=== PATIENT | male | born 1965 | race African-American/Black ===

== ENCOUNTER 2019-11-28 10:48 | Inpatient (IN) | payer OTHER ==
--- NOTE | 2019-11-28 11:23 | BHS.RME ---
Substance Use & Tx History - Substance Use History Heroin Substance amount: 3 bags Frequency of use: Daily Substance route: Inhalation (ex: sniffing or snorting) Date of Last Use: 11/21/19 (started age 33) Alcohol Substance amount: 2 beers Frequency of use: Daily Substance route: Oral Date of Last Use: 11/21/19 (started age 16) Physical/Psych/Mental Status - Behavior General Behavior: Increased activity (restlessness, agitation) Eye Contact: Normal - Cooperativeness Cooperativeness: Cooperative - Thinking Thought Processes: Tight, Logical, Goal Directed - Physical Health Problems Is patient presently having any pain?: No Does patient presently have any injuries (include location): No Does patient currently have a fever: No Is patient : No CIWA Nausea/Vomitin-No Nausea/No Vomiting Muscle Tremors: None Anxiety: 0-No Anxiety, at Ease Agitation: 0-Normal Activity Paroxysmal Sweats: No Perspiration Orientation: 0-Oriented Tacttile Disturbances: 0-None Auditory Disturbances: 0-None Visual Disturbances: 0-None Headache: 0-None Present CIWA-Ar Total Score: 0
[2019-11-28 14:29] VITALS: BMI 22.6
--- NOTE | 2019-11-28 14:36 | HP ---
CIWA Score Nausea/Vomitin-No Nausea/No Vomiting Muscle Tremors: None Anxiety: 0-No Anxiety, at Ease Agitation: 0-Normal Activity Paroxysmal Sweats: No Perspiration Orientation: 0-Oriented Tacttile Disturbances: 0-None Auditory Disturbances: 0-None Visual Disturbances: 0-None Headache: 0-None Present CIWA-Ar Total Score: 0 - Admission Criteria OASAS Guidelines: Admission for Medically Managed Detox: Requires at least one of the followin. CIWA greater than 12 2. Seizures within the past 24 hours 3. Delirium tremens within the past 24 hours 4. Hallucinations within the past 24 hours 5. Acute intervention needed for co occurring medical disorder 6. Acute intervention needed for co occurring psychiatric disorder 7. Severe withdrawal that cannot be handled at a lower level of care (continued vomiting, continued diarrhea, abnormal vital signs) requiring intravenous medication and/or fluids 8. Admitting History and Physical - Admission Chief Complaint: Mr. Florence is a 54 yo man who presents to [facility] requesting rehab admission with a history of alcohol and heroin use. History of Present Illness: Mr. Florence is a 54 yo man who presents to [facility] requesting rehab admission with a history of alcohol and heroin use. He completed detox yesterday at [facility]. There were no beds available here and therefore he was held at [facility] over night and transported here today. Rapid COVID done today negative PMH: BPH, back pain, iron def. anemia, hx of COVID now with IgG antibodies PSH/Psych/Legal: none SOC: lives in the [place] with a roommate Substance Use History Heroin Substance amount: 3 bags Frequency of use: Daily Substance route: Inhalation (ex: sniffing or snorting) Date of Last Use: 11/21/19 (started age 33) OD x August 2019 Has Narcan at home Alcohol Substance amount: 2 beers Frequency of use: Daily Substance route: Oral Date of Last Use: 11/21/19 (started age 16) No seizure, blackout x2: years ago No eyeopener History Source: Patient Limitations to Obtaining History: No Limitations Admission [facility] Allergies/Adverse Reactions: Allergies Allergy/AdvReac Type Severity Reaction Status Date / Time No Known Allergies Allergy Verified 11/28/19 14:53 - Ebola screening Have you traveled outside of the country in the last 21 days: No Have you been sick,other than usual withdrawal symptoms: No Do you have a fever: No - Review of Systems Constitutional: Unintentional Wgt. Loss (10 lb weight loss over the past 3 mos) EENT: reports: Blurred Vision (glasses for reading, with him today) Respiratory: reports: No Symptoms reported Cardiac: reports: No Symptoms Reported GI: reports: No Symptoms Reported : reports: Other (hesitancy) Musculoskeletal: reports: Back Pain (fell off a chair weeks ago while hanging curtains) Integumentary: reports: No Symptoms Reported Neuro: reports: No Symptoms reported Endocrine: reports: No Symptoms Reported Hematology: reports: No Symptoms Reported Psychiatric: reports: Anxious, Depressed (no SI) Patient History - Smoking Cessation Smoking history: Former smoker Have you smoked in the past 12 months: No Hx Chewing Tobacco Use: No Initiated information on smoking cessation: No Admission Physical Exam [facility] - Vital Signs Vital Signs: 126/80, 77, 12, 97.7, sat 98% UDS: MTD, BZO - Physical General Appearance: Yes: No Apparent Distress, Nourished, Thin HEENTM: Yes: EOMI, Hearing grossly Normal, Normocephalic, Normal Voice Respiratory: Yes: Lungs Clear, No Respiratory Distress, No Accessory Muscle Use Neck: Yes: Within Normal Limits, Supple Breast: Yes: Breast Exam Deferred Cardiology: Yes: Regular Rhythm, Regular Rate Abdominal: Yes: Normal Bowel Sounds, Non Tender, Flat, Soft Genitourinary: Yes: Other (deferred) Back: Yes: Normal Inspection Musculoskeletal: Yes: Gait Steady, Other (mild right lumbar paraspinal tenderness) Extremities: Yes: Normal Inspection, Non-Tender Neurological: Yes: Alert, Normal Response Integumentary: Yes: Within Normal Limits - Diagnostic (1) Alcohol use disorder Current Visit: Yes Status: Acute (2) BPH (benign prostatic hyperplasia) Current Visit: Yes Status: Acute (3) Iron deficiency anemia Current Visit: Yes Status: Acute (4) Back pain Current Visit: Yes Status: Acute Cleared for Admission S - Detox or Rehab [facility] Level of Care: Medically Supervised Breathalyzer - Breathalyzer Breathalyzer: 0 Inpatient Rehab Admission - Rehab Decision to Admit Inpatient rehab admission?: Yes - Initial Determination Are CD services needed?: Yes Free of communicable disease: Yes Not in need of hospitalization: Yes - Rehab Admission Criteria Previous failed treatment: Yes Poor recovery environment: Yes Comorbidities: Yes Lacks judgement: Yes Patient is meeting Inpatient Rehab admission criteria:: Yes
[2019-11-28] MEDS ORDERED: ACETAMINOPHEN 325 MG TABLET (FP) PO PRN (14:42)
[2019-11-28] MEDS ORDERED: LOPERAMIDE HCL 2 MG CAPSULE PO PRN (14:42)
[2019-11-28] MEDS ORDERED: MAG HYDROX/AL HYDROX/SIMETH 30 ML UNIT-DOSE CUP PO PRN (14:42)
[2019-11-28] MEDS ORDERED: guaiFENesin 200 MG/10 ML 10 ML UNIT-DOSE CUPS PO PRN (14:42)
[2019-11-28] MEDS ORDERED: P-EPHED 60MG/TRIPROLIDI 2.5MG TABLET PO PRN (14:42)
[2019-11-28] MEDS ORDERED: MAGNESIUM CITRATE 300 ML BOTTLE PO PRN (14:42)
[2019-11-28] MEDS ORDERED: MAGNESIUM HYDROX 2400MG/30ML ORAL SUSPENSION 30 ML CUP PO PRN (14:42)
--- NOTE | 2019-11-28 17:10 | EKG ---
Test Reason : Blood Pressure : / mmHG Vent. Rate : 074 BPM Atrial Rate : 074 BPM P-R Int : 144 ms QRS Dur : 086 ms QT Int : 372 ms P-R-T Axes : 079 079 053 degrees QTc Int : 412 ms NORMAL SINUS RHYTHM SEPTAL INFARCT , AGE UNDETERMINED ABNORMAL ECG NO PREVIOUS ECGS AVAILABLE Confirmed by ZULEIMA VILLEDA MD ([id number]) on 11/28/2019 5:10:37 PM Referred By: Confirmed By:ZULEIMA VILLEDA MD
[2019-11-28] MEDS: hydrOXYzine PAMOATE 25 MG CAPSULE (FP) PO SCH ×2 (18:04→21:43)
[2019-11-28 18:08] LABS: HEMOGLOBIN 14.9 GM/dL (11.7-16.9); MCH 31.4 pg (25.7-33.7); MCHC 35.4 g/dl (32.0-35.9); MEAN CELL VOLUME 88.5 fl (80-96); MEAN PLT VOLUME 8.2 fl (7.5-11.1); PLATELET COUNT 292 K/MM3 (134-434); RBC 4.74 M/mm3 (4.00-5.60); RDW 13.4 % (11.9-15.9); WHITE BLOOD COUNT 6.4 K/mm3 (4.0-10.0)
[2019-11-28 18:20] LABS: ALBUMIN 4.5 g/dl (3.4-5.0); BILIRUBIN,TOTAL 0.9 mg/dL (0.2-1); BLOOD UREA NITROGEN 10.3 mg/dL (7-18); CALCIUM 10.1 mg/dL (8.5-10.1); CREATININE 1.1 mg/dL (0.55-1.3)
[2019-11-28 19:20] LABS: SICKLE CELL SCREEN NEGATIVE (NEGATIVE)
[2019-11-28] MEDS: THIAMINE HCL 100 MG TABLET (FP) PO SCH (21:42)
[2019-11-28] MEDS: MELATONIN 5 MG TABLETS PO SCH (21:44)
[2019-11-29] MEDS: hydrOXYzine PAMOATE 25 MG CAPSULE (FP) PO SCH ×5 (07:09→21:05)
[2019-11-29] MEDS: PRENATAL VITAMINS W/ FOLIC ACID TABLET (FP) PO SCH (10:02)
[2019-11-29] MEDS: FERROUS SO4 325 MG TABLET (FP) PO SCH (10:02)
[2019-11-29] MEDS: TAMSULOSIN HCL 0.4 MG CAP PO SCH (10:50)
[2019-11-29 14:48] LABS: PH,URINE 5.5 (5.0-8.0); URINE APPEARANCE CLEAR; URINE BILIRUBIN NEGATIVE (NEGATIVE); URINE COLOR YELLOW; URINE GLUCOSE (UA) NEGATIVE (NEGATIVE); URINE KETONE NEGATIVE (NEGATIVE); URINE LEUK ESTERASE NEGATIVE (NEGATIVE); URINE NITRITE NEGATIVE (NEGATIVE); URINE PROTEIN NEGATIVE (NEGATIVE); URINE UROBILINOGEN 0.2 mg/dL (0.2-1.0)
[2019-11-29] MEDS: THIAMINE HCL 100 MG TABLET (FP) PO SCH (21:06)
[2019-11-29] MEDS: MELATONIN 5 MG TABLETS PO SCH (21:06)
[2019-11-30] MEDS: hydrOXYzine PAMOATE 25 MG CAPSULE (FP) PO SCH ×5 (06:40→21:59)
[2019-11-30] MEDS ORDERED: TAMSULOSIN HCL 0.4 MG CAP PO SCH (08:30)
[2019-11-30] MEDS: PRENATAL VITAMINS W/ FOLIC ACID TABLET (FP) PO SCH (10:55)
[2019-11-30] MEDS: FERROUS SO4 325 MG TABLET (FP) PO SCH (10:55)
[2019-11-30] MEDS: TAMSULOSIN HCL 0.4 MG CAP PO SCH (10:55)
[2019-11-30] MEDS: THIAMINE HCL 100 MG TABLET (FP) PO SCH (21:59)
[2019-11-30] MEDS: MELATONIN 5 MG TABLETS PO SCH (21:59)
[2019-12-01] MEDS: hydrOXYzine PAMOATE 25 MG CAPSULE (FP) PO SCH ×5 (07:26→21:15)
[2019-12-01] MEDS: FERROUS SO4 325 MG TABLET (FP) PO SCH (10:10)
[2019-12-01] MEDS: TAMSULOSIN HCL 0.4 MG CAP PO SCH (10:10)
[2019-12-01] MEDS: PRENATAL VITAMINS W/ FOLIC ACID TABLET (FP) PO SCH (10:10)
[2019-12-01] MEDS: IBUPROFEN 400 MG TABLET (FP) PO PRN ×2 (10:50→21:14)
[2019-12-01] MEDS: THIAMINE HCL 100 MG TABLET (FP) PO SCH (21:15)
[2019-12-01] MEDS: MELATONIN 5 MG TABLETS PO SCH (21:15)
[2019-12-02] MEDS: hydrOXYzine PAMOATE 25 MG CAPSULE (FP) PO SCH ×5 (06:19→21:45)
[2019-12-02] MEDS: TAMSULOSIN HCL 0.4 MG CAP PO SCH (10:21)
[2019-12-02] MEDS: FERROUS SO4 325 MG TABLET (FP) PO SCH (10:21)
[2019-12-02] MEDS: PRENATAL VITAMINS W/ FOLIC ACID TABLET (FP) PO SCH (10:21)
[2019-12-02] MEDS: THIAMINE HCL 100 MG TABLET (FP) PO SCH (21:46)
[2019-12-02] MEDS: MELATONIN 5 MG TABLETS PO SCH (21:46)
[2019-12-02] MEDS: IBUPROFEN 400 MG TABLET (FP) PO PRN (21:47)
[2019-12-03] MEDS: hydrOXYzine PAMOATE 25 MG CAPSULE (FP) PO SCH ×5 (06:38→21:13)
[2019-12-03] MEDS: IBUPROFEN 400 MG TABLET (FP) PO PRN (09:37)
[2019-12-03] MEDS: TAMSULOSIN HCL 0.4 MG CAP PO SCH (09:37)
[2019-12-03] MEDS: FERROUS SO4 325 MG TABLET (FP) PO SCH (09:37)
[2019-12-03] MEDS: PRENATAL VITAMINS W/ FOLIC ACID TABLET (FP) PO SCH (09:38)
[2019-12-03] MEDS: MELATONIN 5 MG TABLETS PO SCH (21:13)
[2019-12-03] MEDS: THIAMINE HCL 100 MG TABLET (FP) PO SCH (21:13)
[2019-12-04] MEDS: hydrOXYzine PAMOATE 25 MG CAPSULE (FP) PO SCH ×5 (06:51→21:35)
[2019-12-04] MEDS: PRENATAL VITAMINS W/ FOLIC ACID TABLET (FP) PO SCH (09:34)
[2019-12-04] MEDS: FERROUS SO4 325 MG TABLET (FP) PO SCH (09:34)
[2019-12-04] MEDS: TAMSULOSIN HCL 0.4 MG CAP PO SCH (09:34)
[2019-12-04] MEDS: IBUPROFEN 400 MG TABLET (FP) PO PRN (14:31)
[2019-12-04] MEDS: MELATONIN 5 MG TABLETS PO SCH (21:35)
[2019-12-04] MEDS: THIAMINE HCL 100 MG TABLET (FP) PO SCH (21:35)
[2019-12-05] MEDS: hydrOXYzine PAMOATE 25 MG CAPSULE (FP) PO SCH ×5 (07:36→21:11)
[2019-12-05] MEDS: PRENATAL VITAMINS W/ FOLIC ACID TABLET (FP) PO SCH (09:47)
[2019-12-05] MEDS: FERROUS SO4 325 MG TABLET (FP) PO SCH (09:48)
[2019-12-05] MEDS: TAMSULOSIN HCL 0.4 MG CAP PO SCH (09:48)
[2019-12-05] MEDS: MELATONIN 5 MG TABLETS PO SCH (21:11)
[2019-12-05] MEDS: THIAMINE HCL 100 MG TABLET (FP) PO SCH (21:11)
[2019-12-06] MEDS: hydrOXYzine PAMOATE 25 MG CAPSULE (FP) PO SCH ×2 (06:38→10:16)
[2019-12-06] MEDS: TAMSULOSIN HCL 0.4 MG CAP PO SCH (10:16)
[2019-12-06] MEDS: PRENATAL VITAMINS W/ FOLIC ACID TABLET (FP) PO SCH (10:16)
[2019-12-06] MEDS: FERROUS SO4 325 MG TABLET (FP) PO SCH (10:16)
[2019-12-06] MEDS ORDERED: hydrOXYzine PAMOATE 25 MG CAPSULE (FP) PO PRN (11:24)
[2019-12-06] MEDS: MELATONIN 5 MG TABLETS PO SCH (21:23)
[2019-12-06] MEDS: THIAMINE HCL 100 MG TABLET (FP) PO SCH (21:23)
[2019-12-07] MEDS: FERROUS SO4 325 MG TABLET (FP) PO SCH (10:41)
[2019-12-07] MEDS: PRENATAL VITAMINS W/ FOLIC ACID TABLET (FP) PO SCH (10:41)
[2019-12-07] MEDS: TAMSULOSIN HCL 0.4 MG CAP PO SCH (10:41)
[2019-12-07] MEDS: MELATONIN 5 MG TABLETS PO SCH (22:10)
[2019-12-07] MEDS: THIAMINE HCL 100 MG TABLET (FP) PO SCH (22:10)
[2019-12-08] MEDS: FERROUS SO4 325 MG TABLET (FP) PO SCH (09:58)
[2019-12-08] MEDS: TAMSULOSIN HCL 0.4 MG CAP PO SCH (09:58)
[2019-12-08] MEDS: PRENATAL VITAMINS W/ FOLIC ACID TABLET (FP) PO SCH (09:58)
[2019-12-08] MEDS: THIAMINE HCL 100 MG TABLET (FP) PO SCH (21:26)
[2019-12-08] MEDS: MELATONIN 5 MG TABLETS PO SCH (21:26)
[2019-12-09] MEDS: FERROUS SO4 325 MG TABLET (FP) PO SCH (10:24)
[2019-12-09] MEDS: PRENATAL VITAMINS W/ FOLIC ACID TABLET (FP) PO SCH (10:24)
[2019-12-09] MEDS: TAMSULOSIN HCL 0.4 MG CAP PO SCH (10:24)
--- NOTE | 2019-12-09 14:13 | PN ---
BHS Progress Note (SOAP) Subjective: urine divided stream - h/o enalrged prostate. Objective: 12/09/19 14:09 Vital Signs Temperature 98 F 12/09/19 06:37 Pulse Rate 109 H 12/09/19 06:37 Respiratory Rate 20 12/09/19 06:37 Blood Pressure 133/77 12/09/19 06:37 O2 Sat by Pulse Oximetry (%) 99 12/09/19 06:37 Urine Test Results Urine Color Yellow 11/29/19 10:00 Urine Appearance Clear 11/29/19 10:00 Urine pH 5.5 (5.0-8.0) 11/29/19 10:00 Ur Specific Garrison 1.015 (1.010-1.035) 11/29/19 10:00 Urine Protein Negative (NEGATIVE) 11/29/19 10:00 Urine Glucose (UA) Negative (NEGATIVE) 11/29/19 10:00 Urine Ketones Negative (NEGATIVE) 11/29/19 10:00 Urine Blood Negative (NEGATIVE) 11/29/19 10:00 Urine Nitrite Negative (NEGATIVE) 11/29/19 10:00 Urine Bilirubin Negative (NEGATIVE) 11/29/19 10:00 Ur Leukocyte Esterase Negative (NEGATIVE) 11/29/19 10:00 Laboratory Last Values WBC 6.4 K/mm3 (4.0-10.0) 11/28/19 15:00 RBC 4.74 M/mm3 (4.00-5.60) 11/28/19 15:00 Hgb 14.9 GM/dL (11.7-16.9) 11/28/19 15:00 Hct 42.0 % (35.4-49) 11/28/19 15:00 MCV 88.5 fl (80-96) 11/28/19 15:00 MCH 31.4 pg (25.7-33.7) 11/28/19 15:00 MCHC 35.4 g/dl (32.0-35.9) 11/28/19 15:00 RDW 13.4 % (11.9-15.9) 11/28/19 15:00 Plt Count 292 K/MM3 (134-434) 11/28/19 15:00 MPV 8.2 fl (7.5-11.1) 11/28/19 15:00 Sickle Cell Screen Negative (NEGATIVE) 11/28/19 15:00 Sodium 137 mmol/L (136-145) 11/28/19 15:00 Potassium 4.0 mmol/L (3.5-5.1) 11/28/19 15:00 Chloride 100 mmol/L (98-107) 11/28/19 15:00 Carbon Dioxide 29 mmol/L (21-32) 11/28/19 15:00 Anion Gap 8 MMOL/L (8-16) 11/28/19 15:00 BUN 10.3 mg/dL (7-18) 11/28/19 15:00 Creatinine 1.1 mg/dL (0.55-1.3) 11/28/19 15:00 Est GFR (CKD-EPI)AfAm 86.52 11/28/19 15:00 Est GFR (CKD-EPI)NonAf 74.65 11/28/19 15:00 Random Glucose 85 mg/dL (74-106) 11/28/19 15:00 Calcium 10.1 mg/dL (8.5-10.1) 11/28/19 15:00 Total Bilirubin 0.9 mg/dL (0.2-1) 11/28/19 15:00 AST 13 U/L (15-37) L 11/28/19 15:00 ALT 24 U/L (13-61) 11/28/19 15:00 Alkaline Phosphatase 65 U/L (45-117) 11/28/19 15:00 Total Protein 9.0 g/dl (6.4-8.2) H 11/28/19 15:00 Albumin 4.5 g/dl (3.4-5.0) 11/28/19 15:00 Urine Color Yellow 11/29/19 10:00 Urine Appearance Clear 11/29/19 10:00 Urine pH 5.5 (5.0-8.0) 11/29/19 10:00 Ur Specific Garrison 1.015 (1.010-1.035) 11/29/19 10:00 Urine Protein Negative (NEGATIVE) 11/29/19 10:00 Urine Glucose (UA) Negative (NEGATIVE) 11/29/19 10:00 Urine Ketones Negative (NEGATIVE) 11/29/19 10:00 Urine Blood Negative (NEGATIVE) 11/29/19 10:00 Urine Nitrite Negative (NEGATIVE) 11/29/19 10:00 Urine Bilirubin Negative (NEGATIVE) 11/29/19 10:00 Urine Urobilinogen 0.2 mg/dL (0.2-1.0) 11/29/19 10:00 Ur Leukocyte Esterase Negative (NEGATIVE) 11/29/19 10:00 Syphilis Serology Non-reactive (NONREACTIVE) 11/28/19 15:00 HIV Ag/Ab Combo Qual Negative (NEGATIVE) 11/28/19 15:00 SARS-CoV-2 (PCR) Negative (Negative) 11/28/19 12:00 pt aox3 in nad ambulating well w/o d/c all abs wnl Assessment: 12/09/19 14:11 h/o BPH - pt is taking flomax ,u/a is clear , pt will need to f/up with upon d/c.
[2019-12-09] MEDS: MELATONIN 5 MG TABLETS PO SCH (21:11)
[2019-12-09] MEDS: THIAMINE HCL 100 MG TABLET (FP) PO SCH (21:12)
[2019-12-10] MEDS: TAMSULOSIN HCL 0.4 MG CAP PO SCH (09:13)
[2019-12-10] MEDS: FERROUS SO4 325 MG TABLET (FP) PO SCH (09:13)
[2019-12-10] MEDS: PRENATAL VITAMINS W/ FOLIC ACID TABLET (FP) PO SCH (09:13)
[2019-12-10] MEDS: MELATONIN 5 MG TABLETS PO SCH (21:18)
[2019-12-10] MEDS: THIAMINE HCL 100 MG TABLET (FP) PO SCH (21:19)
[2019-12-11] MEDS: TAMSULOSIN HCL 0.4 MG CAP PO SCH (09:35)
[2019-12-11] MEDS: FERROUS SO4 325 MG TABLET (FP) PO SCH (09:35)
[2019-12-11] MEDS: PRENATAL VITAMINS W/ FOLIC ACID TABLET (FP) PO SCH (09:35)
[2019-12-11] MEDS: THIAMINE HCL 100 MG TABLET (FP) PO SCH (21:11)
[2019-12-11] MEDS: MELATONIN 5 MG TABLETS PO SCH (21:11)
[2019-12-12] MEDS: PRENATAL VITAMINS W/ FOLIC ACID TABLET (FP) PO SCH (10:06)
[2019-12-12] MEDS: FERROUS SO4 325 MG TABLET (FP) PO SCH (10:06)
[2019-12-12] MEDS: TAMSULOSIN HCL 0.4 MG CAP PO SCH (10:06)
[2019-12-12] MEDS: MELATONIN 5 MG TABLETS PO SCH (21:36)
[2019-12-12] MEDS: THIAMINE HCL 100 MG TABLET (FP) PO SCH (21:37)
[2019-12-13 07:03] VITALS: BP 113/77; PULSE 85; TEMP 97.3
[2019-12-13] MEDS: PRENATAL VITAMINS W/ FOLIC ACID TABLET (FP) PO SCH (10:32)
[2019-12-13] MEDS: TAMSULOSIN HCL 0.4 MG CAP PO SCH (10:32)
[2019-12-13] MEDS: FERROUS SO4 325 MG TABLET (FP) PO SCH (10:33)
--- NOTE | 2019-12-13 11:16 | DS ---
[facility] Rehab Discharge Summary - [facility] Rehab Discharge Summary Admission Date: 11/28/19 Discharge Date: 12/13/19 - History Present History: Alcohol dependence Pertinent Past History: Mr. Florence is a 54 yo man with a history of alcohol and heroin use. He completed detox at [facility]. Rapid COVID done today negative PMH: BPH, back pain, iron def. anemia, hx of COVID now with IgG antibodies PSH/Psych/Legal: none SOC: lives in the [place] with a roommate - Discharge Physical Exam Vital Signs: Vital Signs Temperature 97.3 F L 12/13/19 06:24 Pulse Rate 85 12/13/19 06:24 Respiratory Rate 18 12/13/19 06:24 Blood Pressure 113/77 12/13/19 06:24 O2 Sat by Pulse Oximetry (%) 98 12/13/19 06:24 Pertinent Admission Physical Exam Findings: Physical General Appearance: No Apparent Distress HEENTM: EOMI,Normocephalic, Respiratory: No Respiratory Distress, No Accessory Muscle Use Neck: Supple Cardiology: Regular Rhythm & Rate Abdominal: +Bowel Sounds, Non Tender, Flat, Soft Musculoskeletal: Gait Steady Neurological: No cognitive deficits - Treatment Discharge Condition: Discharge condition good (Medically stable for discharge), Outpatient referral accepted (Patient will go to [facility]) Hospital Course: Patient attended groups, had 1;1 with his counselor. He was adherent to his medication regimen and treatment plan. He had not acute or urgent medical problems while in rehab. - Medication Discharge Medications: Ambulatory Orders Alfuzosin HCl [Alfuzosin HCl ER] 10 mg PO HS #14 tab.sr 12/13/19 Ferrous Sulfate 325 mg PO DAILY #14 tablet 12/13/19 - Medication-Assisted Treatment (MAT) Medication-Assisted Treatment (MAT): No - Discharge Instructions Diet, activity, other medical instructions: Diet:as tolerated Activity: as tolerated Other medical instructions: Please follow up with after care referral. - Diagnosis (1) Alcohol use disorder Current Visit: Yes Status: Chronic - Follow-up Referral Minutes to complete discharge: 15 - AMA Did Patient Leave Against Medical Advice: No
== END 2019-12-13 11:21 | disposition home or self-care (01) | DRG 772 ==
LOC: YASAS 10:48 → Y3W 15:03
PROVIDERS: ADMIT Allergy & Immunology; ATTEND Allergy & Immunology
PROC: HZ42ZZZ Group Counseling for Substance Abuse Treatment, Cognitive-Behavioral (ICD-10-PCS; principal; 2019-11-28)
DX: F10.20 Alcohol dependence, uncomplicated (principal); F11.20 Opioid dependence, uncomplicated; D50.9 Iron deficiency anemia, unspecified; M54.5 Low back pain; N40.0 Benign prostatic hyperplasia without lower urinary tract symptoms; Z86.19 Personal history of other infectious and parasitic diseases; Z87.891 Personal history of nicotine dependence
CPT/HCPCS: 36415; 80053; 81003; 85027; 85660; 86780; 87389; 93005; 93010; U0003

== ENCOUNTER 2020-03-12 10:12 | Inpatient (IN) | payer OTHER ==
[2020-03-12 10:46] VITALS: BMI 22.4
[2020-03-12] MEDS ORDERED: chlordiazePOXIDE HCL 25 MG CAPSULE PO PRN (11:20)
[2020-03-12] MEDS ORDERED: MAG HYDROX/AL HYDROX/SIMETH 30 ML UNIT-DOSE CUP PO PRN (11:20)
[2020-03-12] MEDS ORDERED: ACETAMINOPHEN 325 MG TABLET (FP) PO PRN ×2 (11:20)
[2020-03-12] MEDS ORDERED: METHOCARBAMOL 500 MG TABLET PO PRN (11:20)
[2020-03-12] MEDS ORDERED: MENTHOL/PHENOL 1 EACH UD MM PRN (11:20)
[2020-03-12] MEDS ORDERED: IBUPROFEN 400 MG TABLET (FP) PO PRN (11:20)
[2020-03-12] MEDS ORDERED: MAGNESIUM HYDROX 2400MG/30ML ORAL SUSPENSION 30 ML CUP PO PRN (11:20)
[2020-03-12] MEDS ORDERED: BISMUTH SUBSALICYLATE 262 MG/15 ML BTL PO PRN (11:20)
[2020-03-12] MEDS ORDERED: ONDANSETRON *ODT* 4 MG TABLET SL PRN (11:20)
[2020-03-12] MEDS ORDERED: MAGNESIUM CITRATE 300 ML BOTTLE PO PRN (11:20)
[2020-03-12] MEDS ORDERED: hydrOXYzine PAMOATE 25 MG CAPSULE (FP) PO PRN (12:32)
[2020-03-12] MEDS: chlordiazePOXIDE HCL 25 MG CAPSULE PO SCH ×3 (13:50→22:40)
[2020-03-12] MEDS: PRENATAL VITAMINS W/ FOLIC ACID TABLET (FP) PO SCH (13:51)
[2020-03-12] MEDS ORDERED: hydrOXYzine PAMOATE 25 MG CAPSULE (FP) PO SCH (14:00)
[2020-03-12] MEDS: MELATONIN 5 MG TABLETS PO SCH (22:40)
[2020-03-12] MEDS: THIAMINE HCL 100 MG TABLET (FP) PO SCH (22:40)
[2020-03-13] MEDS: chlordiazePOXIDE HCL 25 MG CAPSULE PO SCH ×4 (06:04→22:58)
[2020-03-13] MEDS: TAMSULOSIN HCL 0.4 MG CAP PO SCH (11:24)
[2020-03-13] MEDS: PRENATAL VITAMINS W/ FOLIC ACID TABLET (FP) PO SCH (11:25)
[2020-03-13] MEDS: METHADONE HCL 10 MG TABLET PO SCH (11:25)
[2020-03-13 12:14] LABS: HEMATOCRIT 34.6 % (35.4-49); HEMOGLOBIN 11.8 GM/dL (11.7-16.9); MCH 30.7 pg (25.7-33.7); MCHC 34.1 g/dl (32.0-35.9); MEAN CELL VOLUME 90.1 fl (80-96); MEAN PLT VOLUME 8.2 fl (7.5-11.1); PLATELET COUNT 219 K/MM3 (134-434); RBC 3.84 M/mm3 (4.00-5.60); RDW 12.8 % (11.9-15.9); WHITE BLOOD COUNT 4.7 K/mm3 (4.0-10.0)
[2020-03-13 12:38] LABS: POTASSIUM 4.2 mmol/L (3.5-5.1)
[2020-03-13 12:43] LABS: ALBUMIN 3.2 g/dl (3.4-5.0); BLOOD UREA NITROGEN 19.1 mg/dL (7-18)
[2020-03-13 12:47] LABS: BILIRUBIN,TOTAL 0.4 mg/dL (0.2-1)
[2020-03-13 12:48] LABS: TOT PROT 6.1 g/dl (6.4-8.2)
[2020-03-13 12:49] LABS: CREATININE 1.1 mg/dL (0.55-1.3)
[2020-03-13] MEDS: THIAMINE HCL 100 MG TABLET (FP) PO SCH (22:57)
[2020-03-13] MEDS: MELATONIN 5 MG TABLETS PO SCH (22:57)
[2020-03-14] MEDS: chlordiazePOXIDE HCL 25 MG CAPSULE PO SCH ×4 (07:31→22:49)
[2020-03-14] MEDS: METHADONE HCL 10 MG TABLET PO SCH (07:31)
[2020-03-14] MEDS: PRENATAL VITAMINS W/ FOLIC ACID TABLET (FP) PO SCH (10:06)
[2020-03-14] MEDS: TAMSULOSIN HCL 0.4 MG CAP PO SCH (11:49)
[2020-03-14 13:02] LABS: HIV INTERPRETATION NEGATIVE (NEGATIVE)
[2020-03-14] MEDS: MELATONIN 5 MG TABLETS PO SCH (22:48)
[2020-03-14] MEDS: THIAMINE HCL 100 MG TABLET (FP) PO SCH (22:48)
[2020-03-15] MEDS ORDERED: chlordiazePOXIDE HCL 10 MG CAPSULE PO PRN
[2020-03-15] MEDS: chlordiazePOXIDE HCL 10 MG CAPSULE PO SCH ×4 (06:35→22:58)
[2020-03-15] MEDS: METHADONE HCL 10 MG TABLET PO SCH (07:08)
[2020-03-15] MEDS: TAMSULOSIN HCL 0.4 MG CAP PO SCH (10:05)
[2020-03-15] MEDS: PRENATAL VITAMINS W/ FOLIC ACID TABLET (FP) PO SCH (10:05)
[2020-03-15] MEDS: THIAMINE HCL 100 MG TABLET (FP) PO SCH (22:58)
[2020-03-15] MEDS: MELATONIN 5 MG TABLETS PO SCH (22:58)
[2020-03-16] MEDS: chlordiazePOXIDE HCL 10 MG CAPSULE PO SCH ×2 (05:32→17:28)
[2020-03-16] MEDS: METHADONE HCL 10 MG TABLET PO SCH (05:33)
[2020-03-16] MEDS: TAMSULOSIN HCL 0.4 MG CAP PO SCH (08:45)
[2020-03-16] MEDS: PRENATAL VITAMINS W/ FOLIC ACID TABLET (FP) PO SCH (10:14)
[2020-03-16] MEDS: MELATONIN 5 MG TABLETS PO SCH (22:18)
[2020-03-16] MEDS: THIAMINE HCL 100 MG TABLET (FP) PO SCH (22:18)
[2020-03-17] MEDS ORDERED: chlordiazePOXIDE HCL 10 MG CAPSULE PO ONE (05:00)
[2020-03-17] MEDS: METHADONE HCL 10 MG TABLET PO SCH (06:12)
[2020-03-17 09:31] VITALS: BP 88/60; PULSE 87; TEMP 97.8
[2020-03-17] MEDS: PRENATAL VITAMINS W/ FOLIC ACID TABLET (FP) PO SCH (10:03)
[2020-03-17] MEDS: TAMSULOSIN HCL 0.4 MG CAP PO SCH (10:04)
== END 2020-03-17 13:00 | disposition other institution (70) | DRG 773 ==
LOC: YASAS 10:12 → Y3N 11:54
PROVIDERS: ADMIT Allergy & Immunology; ATTEND Allergy & Immunology
PROC: HZ2ZZZZ Detoxification Services for Substance Abuse Treatment (ICD-10-PCS; principal; 2020-03-12)
DX: F10.230 Alcohol dependence with withdrawal, uncomplicated (principal); F11.23 Opioid dependence with withdrawal; D50.9 Iron deficiency anemia, unspecified; N40.0 Benign prostatic hyperplasia without lower urinary tract symptoms; M54.89 Other dorsalgia; G89.29 Other chronic pain; R79.89 Other specified abnormal findings of blood chemistry; R63.4 Abnormal weight loss; Z68.22 Body mass index [BMI] 22.0-22.9, adult; Z87.891 Personal history of nicotine dependence
CPT/HCPCS: 36415; 71046-TC-FY; 80053; 85027; 86780; 87389; C9803; U0003

== ENCOUNTER 2020-03-17 13:04 | Inpatient (IN) | payer OTHER ==
[2020-03-17] MEDS ORDERED: IBUPROFEN 400 MG TABLET (FP) PO PRN (14:16)
[2020-03-17] MEDS ORDERED: MAGNESIUM CITRATE 300 ML BOTTLE PO PRN (14:16)
[2020-03-17] MEDS ORDERED: MENTHOL/PHENOL 1 EACH UD MM PRN (14:16)
[2020-03-17] MEDS ORDERED: MAG HYDROX/AL HYDROX/SIMETH 30 ML UNIT-DOSE CUP PO PRN (14:16)
[2020-03-17] MEDS ORDERED: MAGNESIUM HYDROX 2400MG/30ML ORAL SUSPENSION 30 ML CUP PO PRN (14:16)
[2020-03-17] MEDS ORDERED: P-EPHED 60MG/TRIPROLIDI 2.5MG TABLET PO PRN (14:16)
[2020-03-17] MEDS ORDERED: LOPERAMIDE HCL 2 MG CAPSULE PO PRN (14:16)
[2020-03-17] MEDS ORDERED: ACETAMINOPHEN 325 MG TABLET (FP) PO PRN (14:16)
[2020-03-17] MEDS ORDERED: guaiFENesin 200 MG/10 ML 10 ML UNIT-DOSE CUPS PO PRN (14:16)
[2020-03-17] MEDS: hydrOXYzine PAMOATE 25 MG CAPSULE (FP) PO PRN (21:38)
[2020-03-17] MEDS: THIAMINE HCL 100 MG TABLET (FP) PO SCH (21:38)
[2020-03-17] MEDS: MELATONIN 5 MG TABLETS PO SCH (21:38)
[2020-03-18] MEDS: METHADONE HCL 10 MG TABLET PO SCH (07:31)
[2020-03-18] MEDS: TAMSULOSIN HCL 0.4 MG CAP PO SCH (09:55)
[2020-03-18] MEDS: PRENATAL VITAMINS W/ FOLIC ACID TABLET (FP) PO SCH (09:55)
[2020-03-18] MEDS ORDERED: PNEUMOC 13-VAL CONJ-DIP CRM/PF 0.5 ML DISP.SYRIN IM ONE (12:00)
[2020-03-18] MEDS: MELATONIN 5 MG TABLETS PO SCH (23:16)
[2020-03-18] MEDS: THIAMINE HCL 100 MG TABLET (FP) PO SCH (23:16)
[2020-03-19] MEDS: METHADONE HCL 10 MG TABLET PO SCH (06:26)
[2020-03-19] MEDS: TAMSULOSIN HCL 0.4 MG CAP PO SCH (08:25)
[2020-03-19] MEDS: PRENATAL VITAMINS W/ FOLIC ACID TABLET (FP) PO SCH (10:02)
[2020-03-19] MEDS: MELATONIN 5 MG TABLETS PO SCH (21:55)
[2020-03-19] MEDS: THIAMINE HCL 100 MG TABLET (FP) PO SCH (21:55)
[2020-03-20] MEDS: METHADONE HCL 10 MG TABLET PO SCH (06:31)
[2020-03-20] MEDS: PRENATAL VITAMINS W/ FOLIC ACID TABLET (FP) PO SCH (10:00)
[2020-03-20] MEDS: TAMSULOSIN HCL 0.4 MG CAP PO SCH (10:00)
[2020-03-20] MEDS: MELATONIN 5 MG TABLETS PO SCH (22:02)
[2020-03-20] MEDS: THIAMINE HCL 100 MG TABLET (FP) PO SCH (22:02)
[2020-03-21] MEDS: METHADONE HCL 10 MG TABLET PO SCH (06:45)
[2020-03-21] MEDS: TAMSULOSIN HCL 0.4 MG CAP PO SCH (10:06)
[2020-03-21] MEDS: PRENATAL VITAMINS W/ FOLIC ACID TABLET (FP) PO SCH (10:06)
[2020-03-21] MEDS: THIAMINE HCL 100 MG TABLET (FP) PO SCH (21:53)
[2020-03-21] MEDS: MELATONIN 5 MG TABLETS PO SCH (21:53)
[2020-03-21] MEDS: hydrOXYzine PAMOATE 25 MG CAPSULE (FP) PO PRN (21:54)
[2020-03-22] MEDS: METHADONE HCL 10 MG TABLET PO SCH (06:50)
[2020-03-22] MEDS: TAMSULOSIN HCL 0.4 MG CAP PO SCH (10:15)
[2020-03-22] MEDS: PRENATAL VITAMINS W/ FOLIC ACID TABLET (FP) PO SCH (10:15)
[2020-03-22] MEDS: MELATONIN 5 MG TABLETS PO SCH (21:12)
[2020-03-22] MEDS: THIAMINE HCL 100 MG TABLET (FP) PO SCH (21:12)
[2020-03-23] MEDS: METHADONE HCL 10 MG TABLET PO SCH (06:06)
[2020-03-23] MEDS: TAMSULOSIN HCL 0.4 MG CAP PO SCH (10:34)
[2020-03-23] MEDS: PRENATAL VITAMINS W/ FOLIC ACID TABLET (FP) PO SCH (10:34)
[2020-03-23] MEDS: THIAMINE HCL 100 MG TABLET (FP) PO SCH (21:39)
[2020-03-23] MEDS: MELATONIN 5 MG TABLETS PO SCH (21:39)
[2020-03-24] MEDS: METHADONE HCL 10 MG TABLET PO SCH (06:23)
[2020-03-24] MEDS: TAMSULOSIN HCL 0.4 MG CAP PO SCH (09:51)
[2020-03-24] MEDS: PRENATAL VITAMINS W/ FOLIC ACID TABLET (FP) PO SCH (09:51)
[2020-03-24] MEDS: THIAMINE HCL 100 MG TABLET (FP) PO SCH (22:08)
[2020-03-24] MEDS: MELATONIN 5 MG TABLETS PO SCH (22:08)
[2020-03-25] MEDS: METHADONE HCL 10 MG TABLET PO SCH (06:47)
[2020-03-25] MEDS: PRENATAL VITAMINS W/ FOLIC ACID TABLET (FP) PO SCH (10:15)
[2020-03-25] MEDS: TAMSULOSIN HCL 0.4 MG CAP PO SCH (10:15)
[2020-03-25] MEDS: MELATONIN 5 MG TABLETS PO SCH (21:16)
[2020-03-25] MEDS: THIAMINE HCL 100 MG TABLET (FP) PO SCH (21:17)
[2020-03-26] MEDS: METHADONE HCL 10 MG TABLET PO SCH (06:44)
[2020-03-26] MEDS: PRENATAL VITAMINS W/ FOLIC ACID TABLET (FP) PO SCH (09:54)
[2020-03-26] MEDS: TAMSULOSIN HCL 0.4 MG CAP PO SCH (09:54)
[2020-03-26] MEDS: THIAMINE HCL 100 MG TABLET (FP) PO SCH (22:06)
[2020-03-26] MEDS: MELATONIN 5 MG TABLETS PO SCH (22:06)
[2020-03-27] MEDS: METHADONE HCL 10 MG TABLET PO SCH (06:29)
[2020-03-27] MEDS: TAMSULOSIN HCL 0.4 MG CAP PO SCH (07:35)
[2020-03-27] MEDS: PRENATAL VITAMINS W/ FOLIC ACID TABLET (FP) PO SCH (10:18)
[2020-03-27] MEDS ORDERED: PANTOPRAZOLE 20 MG TABLET PO ONE (22:46)
[2020-03-27] MEDS ORDERED: IBUPROFEN 600 MG TABLET (FP) PO PRN ×2 (22:47→22:58)
[2020-03-27] MEDS: THIAMINE HCL 100 MG TABLET (FP) PO SCH (23:13)
[2020-03-27] MEDS: MELATONIN 5 MG TABLETS PO SCH (23:14)
[2020-03-28] MEDS: METHADONE HCL 10 MG TABLET PO SCH (06:12)
[2020-03-28] MEDS: PRENATAL VITAMINS W/ FOLIC ACID TABLET (FP) PO SCH (09:53)
[2020-03-28] MEDS: PANTOPRAZOLE 40 MG TABLET PO SCH (09:53)
[2020-03-28] MEDS: TAMSULOSIN HCL 0.4 MG CAP PO SCH (09:53)
[2020-03-28] MEDS ORDERED: PANTOPRAZOLE 40 MG TABLET PO SCH ×2 (10:00)
[2020-03-28] MEDS: MELATONIN 5 MG TABLETS PO SCH (21:42)
[2020-03-28] MEDS: THIAMINE HCL 100 MG TABLET (FP) PO SCH (21:42)
[2020-03-29] MEDS: METHADONE HCL 10 MG TABLET PO SCH (06:18)
[2020-03-29] MEDS: PRENATAL VITAMINS W/ FOLIC ACID TABLET (FP) PO SCH (10:03)
[2020-03-29] MEDS: TAMSULOSIN HCL 0.4 MG CAP PO SCH (10:03)
[2020-03-29] MEDS: PANTOPRAZOLE 40 MG TABLET PO SCH (10:03)
[2020-03-29] MEDS: THIAMINE HCL 100 MG TABLET (FP) PO SCH (21:21)
[2020-03-29] MEDS: MELATONIN 5 MG TABLETS PO SCH (21:21)
[2020-03-30] MEDS: METHADONE HCL 10 MG TABLET PO SCH (05:55)
[2020-03-30 07:24] VITALS: BP 148/84; PULSE 88; TEMP 97.5
[2020-03-30] MEDS: PANTOPRAZOLE 40 MG TABLET PO SCH (09:08)
[2020-03-30] MEDS: TAMSULOSIN HCL 0.4 MG CAP PO SCH (09:08)
[2020-03-30] MEDS: PRENATAL VITAMINS W/ FOLIC ACID TABLET (FP) PO SCH (09:09)
== END 2020-03-30 09:22 | disposition home or self-care (01) | DRG 772 ==
LOC: YASAS 13:04 → Y5N 13:05
PROVIDERS: ADMIT Allergy & Immunology; ATTEND Allergy & Immunology
PROC: HZ42ZZZ Group Counseling for Substance Abuse Treatment, Cognitive-Behavioral (ICD-10-PCS; principal; 2020-03-17)
DX: F10.20 Alcohol dependence, uncomplicated (principal); F11.20 Opioid dependence, uncomplicated; D64.9 Anemia, unspecified; M54.5 Low back pain; G89.29 Other chronic pain; N40.0 Benign prostatic hyperplasia without lower urinary tract symptoms; Z87.891 Personal history of nicotine dependence; Z56.0 Unemployment, unspecified
CPT/HCPCS: 93005; 93010; C9803; U0003

== ENCOUNTER 2023-06-11 12:03 | Inpatient (IN) | payer OTHER ==
[2023-06-11 12:28] VITALS: BMI 22.9
[2023-06-11] MEDS ORDERED: BISMUTH SUBSALICYLATE 262 MG/15 ML BTL PO PRN (13:12)
[2023-06-11] MEDS ORDERED: IBUPROFEN 400 MG TABLET (FP) PO PRN (13:12)
[2023-06-11] MEDS ORDERED: METHOCARBAMOL 500 MG TABLET PO PRN (13:12)
[2023-06-11] MEDS ORDERED: NALOXONE HCL 0.4 MG/ML VIAL IM PRN (13:12)
[2023-06-11] MEDS ORDERED: ONDANSETRON *ODT* 4 MG TABLET SL PRN (13:12)
[2023-06-11] MEDS ORDERED: NALOXONE HCL (KLOXXADO) 8 MG SPRAY NS PRN (13:12)
[2023-06-11] MEDS ORDERED: ACETAMINOPHEN 325 MG TABLET (FP) PO PRN (13:12)
[2023-06-11] MEDS ORDERED: MAG HYDROX/AL HYDROX/SIMETH 30 ML UNIT-DOSE CUP PO PRN (13:12)
[2023-06-11] MEDS ORDERED: LOPERAMIDE HCL 2 MG CAPSULE PO PRN (13:12)
[2023-06-11] MEDS ORDERED: MAGNESIUM HYDROX 2400MG/30ML ORAL SUSPENSION 30 ML CUP PO PRN (13:12)
[2023-06-11] MEDS ORDERED: BENZONATATE 200 MG CAPSULE PO PRN (13:12)
[2023-06-11] MEDS ORDERED: guaiFENesin 600 MG TABLET.ER (FP) PO PRN (13:12)
[2023-06-11] MEDS ORDERED: BENZOCAINE/MENTHOL (CHLORASEPTIC ) LOZENGE MM PRN (13:12)
[2023-06-11] MEDS ORDERED: POLYETHYLENE GLYCOL (HEALTHYLAX) 3350 17 GM PACKET PO PRN (13:12)
[2023-06-11] MEDS ORDERED: hydrOXYzine PAMOATE 25 MG CAPSULE (FP) PO PRN (13:12)
[2023-06-11] MEDS ORDERED: DICYCLOMINE HCL 10 MG CAPSULE PO PRN (13:12)
[2023-06-11] MEDS ORDERED: cloNIDine HCL 0.1 MG TABLET ONE (14:51)
[2023-06-11] MEDS: cloNIDine HCL 0.1 MG TABLET PO SCH (14:54)
[2023-06-11] MEDS: THIAMINE 100 MG TABLET PO SCH (22:20)
[2023-06-11] MEDS: MELATONIN 5 MG TABLETS PO SCH (22:20)
[2023-06-11] MEDS: BUPRENORPHINE/NALOXONE 0.5 MG/0.125 MG FILM SL ONE (23:00)
[2023-06-12] MEDS: methaDONE HCL 10 MG TABLET (FOR DETOX USE ONLY) PO ONE (10:21)
[2023-06-12] MEDS: BUPRENORPHINE/NALOXONE 0.5 MG/0.125 MG FILM SL SCH (10:22)
[2023-06-12] MEDS: PRENATAL VITAMINS W/ FOLIC ACID TABLET (FP) PO SCH (10:22)
[2023-06-12 11:48] LABS: HEMATOCRIT 38.3 % (35.4-49); HEMOGLOBIN 13.3 GM/dL (11.7-16.9); MCH 30.3 pg (25.7-33.7); MCHC 34.6 g/dl (32.0-35.9); MEAN CELL VOLUME 87.5 fl (80-96); MEAN PLT VOLUME 7.8 fl (7.5-11.1); PLATELET COUNT 267 10^3/uL (134-434); RBC 4.38 M/mm3 (4.00-5.60); RDW 13.7 % (11.9-15.9); WHITE BLOOD COUNT 4.1 K/mm3 (4.0-10.0)
[2023-06-12 11:56] LABS: POTASSIUM 4.2 mmol/L (3.5-5.1)
[2023-06-12 12:10] LABS: CALCIUM 9.1 mg/dL (8.5-10.1)
[2023-06-12 12:12] LABS: TOT PROT 7.5 g/dl (6.4-8.2)
[2023-06-12 12:16] LABS: BILIRUBIN,TOTAL 1.4 mg/dL (0.2-1)
[2023-06-13] MEDS: methaDONE HCL 10 MG TABLET (FOR DETOX USE ONLY) PO ONE (09:59)
[2023-06-13] MEDS: BUPRENORPHINE/NALOXONE 2 MG/0.5 MG FILM PACKET SL SCH (10:00)
[2023-06-14] MEDS: BUPRENORPHINE/NALOXONE 4 MG/1 MG FILM PACKET SL SCH (10:06)
[2023-06-15] MEDS: TAMSULOSIN HCL 0.4 MG CAP PO SCH (09:56)
[2023-06-15] MEDS: BUPRENORPHINE/NALOXONE 8 MG/2 MG FILM PACKET SL SCH (09:58)
[2023-06-15] MEDS: methaDONE HCL 10 MG TABLET (FOR DETOX USE ONLY) PO ONE (10:00)
[2023-06-15] MEDS: IBUPROFEN 600 MG TABLET (FP) PO PRN (22:39)
[2023-06-16] MEDS: BUPRENORPHINE/NALOXONE 8 MG/2 MG FILM PACKET SL SCH (06:05)
[2023-06-16] MEDS ORDERED: BUPRENORPHINE/NALOXONE 8 MG/2 MG FILM PACKET SL SCH (10:00)
[2023-06-16 10:42] VITALS: BP 130/84; PULSE 72; RESP 16; TEMP 97.7
== END 2023-06-16 11:20 | disposition home or self-care (01) | DRG 773 ==
LOC: YASAS 12:03 → Y6N 13:43
PROVIDERS: ADMIT Allergy & Immunology; ATTEND Surgery
PROC: HZ2ZZZZ Detoxification Services for Substance Abuse Treatment (ICD-10-PCS; principal; 2023-06-11)
DX: F11.23 Opioid dependence with withdrawal (principal); F10.230 Alcohol dependence with withdrawal, uncomplicated; N40.0 Benign prostatic hyperplasia without lower urinary tract symptoms; Z87.891 Personal history of nicotine dependence
CPT/HCPCS: 36415; 71046-TC-FY; 80053; 80307; 82140; 82247; 85027; 86480; 86780; 93005; 93010